=== PATIENT | female | born 1995 | race Hispanic/Latino ===

== ENCOUNTER 2018-12-02 13:26 | Outpatient (CLI) | payer OTHER ==
--- NOTE | 2018-12-02 14:28 | ULT ---
EXAM: OB ultrasound COMPARISON: None HISTORY: female. Evaluate size, dates, and anatomy. TECHNIQUE: Multiplanar grayscale and color Doppler images were obtained in a transabdominal ult rasound. FINDINGS: There is a single live intrauterine with heart rate of 153 bpm. A survey wa s performed which is unremarkable. The head, intracranial structures, heart, stomach, kidneys, umbilical cord, umbilical cord insertion, spine, face, and extremities were evaluated and were unrema rkable. Estimated weight is 378 g. Average age of the fetus based off today's examination is 21 weeks 1 day. BPD 5.13 cm -- 21 weeks 4 days HC 18.78 cm -- 21 weeks 1 day AC 15.28 cm -- 20 weeks 4 days FL 3.49 cm -- 21 weeks 1 day The placenta is anterior/fundal in location without focal abnormality. MIRNA is 11.62 cm which is ernie l. The cervix is normal in length. There is no evidence of placenta previa. IMPRESSION: Single live intrauterine with estimated age of 21 weeks 1 day.
== END 2018-12-02 13:27 | disposition home or self-care (01) ==
LOC: EDBD 13:26 → BICULT 13:26
DX: Z34.02 Encounter for supervision of normal first pregnancy, second trimester (principal); Z3A.21 21 weeks gestation of pregnancy
CPT/HCPCS: 76805